=== PATIENT | female | born 1985 | race African-American/Black ===

== ENCOUNTER 2018-03-13 06:23 | Emergency (ER) | payer SELFPAY ==
[2018-03-13 07:01] LABS: Urine Blood NEGATIVE (NEG); Urine Glucose NEGATIVE (NEG); Urine Protein NEGATIVE (NEG); Urine Specific Gravity 1.015 (1.005-1.030)
[2018-03-13] MEDS ORDERED: KETOROLAC 30 MG/ML INJ ONE (08:51)
--- NOTE | 2018-03-13 08:53 | ER ---
Nurse's Notes [facility] Name: Miley Larson Age: 32 yrs Sex: Female : 1985 Arrival Date: 03/13/2018 Time: 06:26 Bed 16 Private MD: None, None Diagnosis: Lower abdominal pain, unspecified Presentation: 03/13 06:42 Presenting complaint: Patient states: L lower pelvic pain since last night. Reports hx aa1 of ovarian cyst and is concerned it may be another. Also reports she could possibly be . Transition of care: patient was not received from another setting of care. Onset of symptoms was March 12, 2018. Risk Assessment: Do you want to hurt yourself or someone else? Patient reports no desire to harm self or others. Initial Sepsis Screen: Does the patient meet any 2 criteria? No. Patient's initial sepsis screen is negative. Does the patient have a suspected source of infection? No. Patient's initial sepsis screen is negative. Care prior to arrival: None. 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 - Social history:: Smoking status: Patient uses tobacco products, smokes one-half pack cigarettes per day. - Ebola Screening: : No symptoms or risks identified at this time. Screenin:45 Abuse screen: Denies threats or abuse. Denies injuries from another. Nutritional aa1 screening: No deficits noted. Tuberculosis screening: No symptoms or risk factors identified. Fall Risk None identified. Assessment: 06:45 General: Appears in no apparent distress. comfortable, Behavior is calm, cooperative, aa1 appropriate for age. Pain: Complains of pain in left lower quadrant Pain began suddenly, Is continuous. Neuro: Level of Consciousness is awake, alert, obeys commands, Oriented to person, place, time, situation, Moves all extremities. Full function Gait is steady. Respiratory: Airway is patent Respiratory effort is even, unlabored, Respiratory pattern is regular, symmetrical. GI: Reports lower abdominal pain. GI: Abd is soft X 4 quads. : Denies discharge, vaginal bleeding. EENT: No signs and/or symptoms were reported regarding the EENT system. Derm: Skin is intact, is healthy with good turgor, Skin is pink, warm \T\ dry. Musculoskeletal: Circulation, motion, and sensation intact. Capillary refill < 3 seconds. 07:00 General: Appears in no apparent distress. comfortable, Behavior is calm, cooperative. rb1 Pain: Complains of pain in left lower quadrant Pain currently is 7 out of 10 on a pain scale. Neuro: Level of Consciousness is awake, alert, obeys commands, Oriented to person, place, time, situation. Cardiovascular: Capillary refill < 3 seconds is brisk in bilateral fingers. Respiratory: Airway is patent Respiratory effort is even, unlabored, Respiratory pattern is regular, symmetrical. Derm: Skin is dry, Skin is normal, Skin temperature is warm. 08:00 Reassessment: Patient appears in no apparent distress at this time. No changes from rb1 previously documented assessment. 08:45 Reassessment: Patient appears in no apparent distress at this time. Patient and/or rb1 family updated on plan of care and expected duration. Pain level reassessed. Patient is alert, oriented x 3, equal unlabored respirations, skin warm/dry/pink. Vital Signs: 06:44 BP 133 / 87; Pulse 90; Resp 16; Temp 98.4; Pulse Ox 97% on R/A; Weight 98.88 kg; Height aa1 5 ft. 2 in. (157.48 cm); Pain 7/10; 07:30 BP 118 / 71; Pulse 72; Resp 17; Pulse Ox 99% on R/A; Pain 7/10; rb1 08:30 BP 110 / 77; Pulse 74; Resp 17; Pulse Ox 98% on R/A; rb1 06:44 Body Mass Index 39.87 (98.88 kg, 157.48 cm) aa1 ED Course: 06:26 Patient arrived in ED. al2 06:27 None, None is Private Physician. al2 06:31 Vibha Grande [facility]C [facility]. snw 06:31 Henrique Hassan MD is Attending Physician. snw 06:43 Triage completed. aa1 06:44 Arm band placed on left wrist. Patient placed in an exam room, on a stretcher. aa1 06:45 Patient has correct armband on for positive identification. Bed in low position. Call aa1 light in reach. Pulse ox on. NIBP on. 07:01 Sherry Arndt, RN is Primary Nurse. rb1 07:49 Ultrasound completed. Patient tolerated well. sg3 08:13 US Transvaginal Study (Probe) In Process Unspecified. EDMS 09:11 No provider procedures requiring assistance completed. Patient did not have IV access sv during this emergency room visit. Administered Medications: 08:54 Drug: TORadol 60 mg Route: IM; Site: left gluteus; rb1 09:11 Follow up: Response: No adverse reaction sv Outcome: 08:53 Discharge ordered by MD. snw 09:11 Discharged to home ambulatory. sv 09:11 Condition: stable 09:11 Discharge instructions given to patient, Instructed on discharge instructions, follow up and referral plans. medication usage, Demonstrated understanding of instructions, follow-up care, medications, Prescriptions given X 2. 09:11 Patient left the ED. sv Signatures: Dispatcher [employer] EDOH Blanka Bolaños, RN WILNER sv Marina Whittintgon RN RN aa1 Vibha Grande FNP-C DYNAMICS AX TECHNICAL ARCHITECT-Csnw Sherry Arndt, RN RN rb1 Livier Figueroa 3 Viviana Eldridge
--- NOTE | 2018-03-13 08:53 | EDPHYS ---
Physician Documentation [facility] Name: Miley Larson Age: 32 yrs Sex: Female : 1985 Arrival Date: 03/13/2018 Time: 06:26 Bed 16 Private MD: None, None ED Physician Henrique Hassan HPI: 03/13 06:45 This 32 yrs old Black Female presents to ER via Ambulatory with complaints of OVARIAN snw PAIN. 06:45 The patient presents with left lower quad pain similar to previous ovarian cyst pain. snw Onset: The symptoms/episode began/occurred suddenly, last night. Associated signs and symptoms: The patient has no apparent associated signs or symptoms. Severity of symptoms: At their worst the symptoms were moderate, severe. The patient is sexually active. The patient has experienced a previous episode. The patient has not recently seen a physician. 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 - Social history:: Smoking status: Patient uses tobacco products, smokes one-half pack cigarettes per day. - Ebola Screening: : No symptoms or risks identified at this time. ROS: 06:43 Constitutional: Negative for fever, chills, and weight loss, Eyes: Negative for injury, snw pain, redness, and discharge, ENT: Negative for injury, pain, and discharge, Neck: Negative for injury, pain, and swelling, Cardiovascular: Negative for chest pain, palpitations, and edema, Respiratory: Negative for shortness of breath, cough, wheezing, and pleuritic chest pain, Back: Negative for injury and pain, : Negative for injury, bleeding, discharge, and swelling, MS/Extremity: Negative for injury and deformity, Skin: Negative for injury, rash, and discoloration, Neuro: Negative for headache, weakness, numbness, tingling, and seizure, Psych: Negative for depression, anxiety, suicide ideation, homicidal ideation, and hallucinations. 06:43 Abdomen/GI: Positive for abdominal pain. Exam: 06:43 Constitutional: This is a well developed, well nourished patient who is awake, alert, snw and in no acute distress. Head/Face: Normocephalic, atraumatic. Eyes: Pupils equal round and reactive to light, extra-ocular motions intact. Lids and lashes normal. Conjunctiva and sclera are non-icteric and not injected. Cornea within normal limits. Periorbital areas with no swelling, redness, or edema. ENT: Nares patent. No nasal discharge, no septal abnormalities noted. Tympanic membranes are normal and external auditory canals are clear. Oropharynx with no redness, swelling, or masses, exudates, or evidence of obstruction, uvula midline. Mucous membranes moist. Neck: Trachea midline, no thyromegaly or masses palpated, and no cervical lymphadenopathy. Supple, full range of motion without nuchal rigidity, or vertebral point tenderness. No Meningismus. Chest/axilla: Normal chest wall appearance and motion. Nontender with no deformity. No lesions are appreciated. Cardiovascular: Regular rate and rhythm with a normal S1 and S2. No gallops, murmurs, or rubs. Normal PMI, no JVD. No pulse deficits. Respiratory: Lungs have equal breath sounds bilaterally, clear to auscultation and percussion. No rales, rhonchi or wheezes noted. No increased work of breathing, no retractions or nasal flaring. Back: No spinal tenderness. No costovertebral tenderness. Full range of motion. Skin: Warm, dry with normal turgor. Normal color with no rashes, no lesions, and no evidence of cellulitis. MS/ Extremity: Pulses equal, no cyanosis. Neurovascular intact. Full, normal range of motion. Neuro: Awake and alert, GCS 15, oriented to person, place, time, and situation. Cranial nerves II-XII grossly intact. Motor strength 5/5 in all extremities. Sensory grossly intact. Cerebellar exam normal. Normal gait. Psych: Awake, alert, with orientation to person, place and time. Behavior, mood, and affect are within normal limits. 06:43 Abdomen/GI: Inspection: abdomen appears normal, Bowel sounds: normal, Palpation: moderate abdominal tenderness, severe abdominal tenderness, in the left lower quadrant. Vital Signs: 06:44 BP 133 / 87; Pulse 90; Resp 16; Temp 98.4; Pulse Ox 97% on R/A; Weight 98.88 kg; Height aa1 5 ft. 2 in. (157.48 cm); Pain 7/10; 07:30 BP 118 / 71; Pulse 72; Resp 17; Pulse Ox 99% on R/A; Pain 7/10; rb1 08:30 BP 110 / 77; Pulse 74; Resp 17; Pulse Ox 98% on R/A; rb1 06:44 Body Mass Index 39.87 (98.88 kg, 157.48 cm) aa1 MDM: 06:31 Patient medically screened. snw 08:54 Data reviewed: vital signs, nurses notes. Data interpreted: Pulse oximetry: on room air snw is 99 %. Interpretation: normal. Counseling: I had a detailed discussion with the patient and/or guardian regarding: the historical points, exam findings, and any diagnostic results supporting the discharge/admit diagnosis, lab results, the need for outpatient follow up, to return to the emergency department if symptoms worsen or persist or if there are any questions or concerns that arise at home. Special discussion: I have referred the patient to see his PCP for further evaluation of high blood pressure. Based on the history and exam findings, there is no indication for further emergent testing or inpatient evaluation. I discussed with the patient/guardian the need to see the OB Gyne specialist for further evaluation of the symptoms. I discussed with the patient/guardian the need to see the primary care provider for further evaluation of the symptoms. 03/13 06:49 Order name: Urine Dipstick--Ancillary (enter results); Complete Time: 07:06 oe 03/13 06:49 Order name: Urine --Ancillary (enter results); Complete Time: 07:06 oe 03/13 07:07 Order name: Transvaginal Study (Probe) snw Administered Medications: 08:54 Drug: TORadol 60 mg Route: IM; Site: left gluteus; rb1 09:11 Follow up: Response: No adverse reaction sv Disposition: 03/14 07:17 Co-signature as Attending Physician, Henrique Hassan MD. gs Disposition: 03/13/18 08:53 Discharged to Home. Impression: Lower abdominal pain, unspecified. - Condition is Stable. - Discharge Instructions: Hypertension, Abdominal Pain, Women. - Prescriptions for Bentyl 20 mg Oral Tablet - take 1 tablet by ORAL route every 6 hours As needed; 20 tablet. Diclofenac Sodium 75 mg Oral Tablet Sustained Release - take 1 tablet by ORAL route 2 times per day; 30 tablet. - Medication Reconciliation Form, Thank You Letter, Antibiotic Education, Prescription Opioid Use form. - Follow up: Private Physician; When: 2 - 3 days; Reason: Recheck today's complaints, Continuance of care, Re-evaluation by your physician. Follow up: Emergency Department; When: As needed; Reason: Worsening of condition. Signatures: Dispatcher [employer] EDMS Blanka Bolaños RN RN sv Marina Whittington RN RN aa1 Vibha Grande, CREATIVE SPECIALIST-C CREATIVE SPECIALIST-Csnw Sherry Arndt RN RN rb1 Henrique Hassan MD MD gs Corrections: (The following items were deleted from the chart) 03/13 09:11 08:53 03/13/2018 08:53 Discharged to Home. Impression: Lower abdominal pain, sv unspecified. Condition is Stable. Forms are Medication Reconciliation Form, Thank You Letter, Antibiotic Education, Prescription Opioid Use. Follow up: Private Physician; When: 2 - 3 days; Reason: Recheck today's complaints, Continuance of care, Re-evaluation by your physician. Follow up: Emergency Department; When: As needed; Reason: Worsening of condition. snw
--- NOTE | 2018-03-13 10:22 | RAD REPORT ---
EXAM DESCRIPTION: US - Transvaginal Study Probe - 03/13/2018 8:13 am CLINICAL HISTORY: Abdominal pain, pelvic pain. Preliminary findings provided at the time of the study. COMPARISON: Pelvic ultrasound September 2016 TECHNIQUE: Endovaginal sonography was performed. FINDINGS: Endometrial stripe is 6 mm with no focal endometrial abnormality seen. No myometrial mass. Uterus is 7.5 x 3.6 x 4.2 cm. Both ovaries are identified and show normal Doppler blood flow pattern . A 17 millimeter anechoic benign right ovarian cyst is present. No fluid or blood in the cul-de-sac. No suspicious ovarian or adnexal finding. IMPRESSION: Negative pelvic ultrasound except for an incidental 17 millimeter benign right ovarian c yst.
== END 2018-03-13 09:11 | disposition home or self-care (01) ==
LOC: ER 06:23
DX: R10.30 Lower abdominal pain, unspecified (principal); E11.9 Type 2 diabetes mellitus without complications; I10 Essential (primary) hypertension; F17.210 Nicotine dependence, cigarettes, uncomplicated
CPT/HCPCS: 76830; 81003; 81025; 96372; 99284

== ENCOUNTER 2019-03-08 22:52 | Emergency (ER) | payer SELFPAY ==
[2019-03-09 00:01] LABS: Absolute Monocytes 0.4 K/uL (0.1-1.3); Absolute Neutrophil 4.9 K/uL (1.8-8.0); Basophils % 0.4 % (0-1.3); Eosinophils % 0.9 % (0-4.4); Hematocrit 36.9 % (36.0-45.0); Lymphocytes % 16.4 % (15.3-44.8); MPV 8.2 fL (7.6-11.3); Monocytes % 5.9 % (3.3-12.3); RBC Red Blood Cell Count 4.67 M/uL (3.86-4.86)
[2019-03-09 00:11] LABS: BUN Blood Urea Nitrogen 8 mg/dL (7-18); Bicarbonate 27 mmol/L (21-32); Glucose Level 127 mg/dL (74-106); NT PRO-BNP 30 pg/mL (<125); Potassium 3.6 mmol/L (3.5-5.1); Sodium Level 140 mmol/L (136-145); Troponin (Emerg Dept Use Only) < 0.02 ng/mL (0.0-0.045)
--- NOTE | 2019-03-09 00:36 | EDPHYS ---
Physician Documentation [facility] Name: Miley Larson Age: 33 yrs Sex: Female : 1985 Arrival Date: 03/08/2019 Time: 22:57 Bed 19 Private MD: ED Physician Henrique Hassan HPI: 03/09 00:31 This 33 yrs old Black Female presents to ER via Ambulatory with complaints of Chest kb Pain. 00:31 The patient or guardian reports chest pain that is located primarily in the substernal kb area. The pain does not radiate. Associated signs and symptoms: The patient has no apparent associated signs or symptoms. The chest pain is described as aching. Duration: The patient or guardian reports a single episode. Modifying factors: The symptoms are alleviated by nothing. the symptoms are aggravated by nothing. Severity of pain: At its worst the pain was mild moderate in the emergency department the pain is unchanged. The patient has experienced similar episodes in the past, several times. The patient has not recently seen a physician. Pt reports she started having right arm pain at noon, then started having substernal chest pain at 2145. States she has had this a few times before due to stress. Historical: - Allergies: 03/08 23:04 No Known Allergies; bb - Home Meds: 23:04 amlodipine 5 mg tab 1 tab once daily [Active]; aspirin 81 mg Oral TbEC 1 tab once daily bb [Active]; hydrochlorothiazide 25 mg Oral tab 1 tab once daily [Active]; paroxetine oral oral [Active]; - PMHx: 23:04 Hypertension; Anxiety; bb - Immunization history:: Adult Immunizations up to date. - Social history:: Smoking status: unknown. - Ebola Screening: : No symptoms or risks identified at this time. ROS: 03/09 00:31 Constitutional: Negative for fever, chills, and weight loss, Neck: Negative for injury, kb pain, and swelling, Respiratory: Negative for shortness of breath, cough, wheezing, and pleuritic chest pain, Abdomen/GI: Negative for abdominal pain, nausea, vomiting, diarrhea, and constipation, Back: Negative for injury and pain, MS/Extremity: Negative for injury and deformity, Skin: Negative for injury, rash, and discoloration, Neuro: Negative for headache, weakness, numbness, tingling, and seizure. Cardiovascular: Positive for chest pain, Negative for edema, orthopnea, palpitations, paroxysmal nocturnal dyspnea. Exam: 00:31 Constitutional: This is a well developed, well nourished patient who is awake, alert, kb and in no acute distress. Head/Face: Normocephalic, atraumatic. ENT: Nares patent. No nasal discharge, no septal abnormalities noted. Tympanic membranes are normal and external auditory canals are clear. Oropharynx with no redness, swelling, or masses, exudates, or evidence of obstruction, uvula midline. Mucous membranes moist. Neck: Trachea midline, no thyromegaly or masses palpated, and no cervical lymphadenopathy. Supple, full range of motion without nuchal rigidity, or vertebral point tenderness. No Meningismus. Chest/axilla: Normal chest wall appearance and motion. Nontender with no deformity. No lesions are appreciated. Cardiovascular: Regular rate and rhythm with a normal S1 and S2. No gallops, murmurs, or rubs. Normal PMI, no JVD. No pulse deficits. Respiratory: Lungs have equal breath sounds bilaterally, clear to auscultation and percussion. No rales, rhonchi or wheezes noted. No increased work of breathing, no retractions or nasal flaring. Abdomen/GI: Soft, non-tender, with normal bowel sounds. No distension or tympany. No guarding or rebound. No evidence of tenderness throughout. Back: No spinal tenderness. No costovertebral tenderness. Full range of motion. Skin: Warm, dry with normal turgor. Normal color with no rashes, no lesions, and no evidence of cellulitis. MS/ Extremity: Pulses equal, no cyanosis. Neurovascular intact. Full, normal range of motion. Neuro: Awake and alert, GCS 15, oriented to person, place, time, and situation. Cranial nerves II-XII grossly intact. Motor strength 5/5 in all extremities. Sensory grossly intact. Cerebellar exam normal. Normal gait. 00:35 ECG was reviewed by the Attending Physician. skye Vital Signs: 03/08 23:04 BP 140 / 87; Pulse 85; Resp 16 S; Temp 98.9(O); Pulse Ox 99% on R/A; Weight 93.44 kg bb (R); Height 5 ft. 3 in. (160.02 cm) (R); Pain 7/10; 03/09 00:23 BP 114 / 66; Pulse 82; Resp 18; Pulse Ox 100% on R/A; ea 03/08 23:04 Body Mass Index 36.49 (93.44 kg, 160.02 cm) bb MDM: 03/08 23:03 Patient medically screened. kb 03/09 00:32 ZAMZAM Risk Score: TOTAL SCORE = 0. Data reviewed: vital signs, nurses notes. Data kb interpreted: Pulse oximetry: on room air is 100 %. Interpretation: normal. Counseling: I had a detailed discussion with the patient and/or guardian regarding: the historical points, exam findings, and any diagnostic results supporting the discharge/admit diagnosis, lab results, radiology results, the need for outpatient follow up, a family practitioner, to return to the emergency department if symptoms worsen or persist or if there are any questions or concerns that arise at home. ED course: HEART score: 2 (obesity, HTN, and smoker). 00:36 The patient's pulmonary embolism risk score was calculated as follows: No Risks (0 Pts).kb 03/08 23:08 Order name: Basic Metabolic Panel; Complete Time: 00:11 kb 03/08 23:08 Order name: CBC with Diff; Complete Time: 00:30 kb 03/08 23:08 Order name: NT PRO-BNP; Complete Time: 00:11 kb 03/08 23:08 Order name: Troponin (emerg Dept Use Only); Complete Time: 00:11 kb 03/08 23:08 Order name: XRAY Chest (1 view) kb 03/08 23:08 Order name: EKG; Complete Time: 23:09 kb 03/08 23:08 Order name: Cardiac monitoring; Complete Time: 00:20 kb 03/08 23:08 Order name: EKG - Nurse/Tech; Complete Time: 00:20 kb 03/08 23:08 Order name: IV Saline Lock; Complete Time: 00:21 kb 03/08 23:08 Order name: Labs collected and sent; Complete Time: 00:21 kb 03/08 23:08 Order name: O2 Per Protocol; Complete Time: 00:21 kb 03/08 23:08 Order name: O2 Sat Monitoring; Complete Time: 00:21 kb EC:35 Rate is 89 beats/min. Rhythm is regular, Normal Sinus Rhythm. QRS [place] is Normal. [place] kb interval is normal at 138 msec. QRS interval is normal at 82 msec. QT interval is normal at 350 msec. Clinical impression: Normal ECG. Interpreted by me. Reviewed by me. Administered Medications: No medications were administered Disposition: 03/09/19 00:35 Discharged to Home. Impression: Chest pain, unspecified. - Condition is Stable. - Discharge Instructions: Nonspecific Chest Pain, [id number]. - Medication Reconciliation Form, Thank You Letter, Antibiotic Education, Prescription Opioid Use, Work release form form. - Follow up: Emergency Department; When: As needed; Reason: Worsening of condition. Follow up: Private Physician; When: 2 - 3 days; Reason: Recheck today's complaints, Continuance of care, Re-evaluation by your physician. Signatures: Dispatcher [employer] EDMS Skylar York, HARDWARE DESIGNER-C HARDWARE DESIGNER-Nydia Randle RN RN Jessika Narayan RN RN ea Corrections: (The following items were deleted from the chart) 00:51 00:35 03/09/2019 00:35 Discharged to Home. Impression: Chest pain, unspecified. ea Condition is Stable. Forms are Medication Reconciliation Form, Thank You Letter, Antibiotic Education, Prescription Opioid Use. Follow up: Emergency Department; When: As needed; Reason: Worsening of condition. Follow up: Private Physician; When: 2 - 3 days; Reason: Recheck today's complaints, Continuance of care, Re-evaluation by your physician. kb
--- NOTE | 2019-03-09 00:36 | ER ---
Nurse's Notes [facility] Name: Miley Larson Age: 33 yrs Sex: Female : 1985 Arrival Date: 03/08/2019 Time: 22:57 Bed 19 Private MD: Diagnosis: Chest pain, unspecified Presentation: 03/08 23:03 Presenting complaint: Patient states: she was at work tonight and started having chest bb pain with right arm pain at about 2100 pain is throbbing, constant and currently is 7/10. Transition of care: patient was not received from another setting of care. Onset of symptoms was March 08, 2019. Risk Assessment: Do you want to hurt yourself or someone else? Patient reports no desire to harm self or others. Initial Sepsis Screen: Does the patient meet any 2 criteria? No. Patient's initial sepsis screen is negative. Does the patient have a suspected source of infection? No. Patient's initial sepsis screen is negative. Care prior to arrival: None. 23:03 Method Of Arrival: Ambulatory bb 23:03 Acuity: MIGEL 3 bb Historical: - Allergies: 23:04 No Known Allergies; bb - Home Meds: 23:04 amlodipine 5 mg tab 1 tab once daily [Active]; aspirin 81 mg Oral TbEC 1 tab once daily bb [Active]; hydrochlorothiazide 25 mg Oral tab 1 tab once daily [Active]; paroxetine oral oral [Active]; - PMHx: 23:04 Hypertension; Anxiety; bb - Immunization history:: Adult Immunizations up to date. - Social history:: Smoking status: unknown. - Ebola Screening: : No symptoms or risks identified at this time. Screenin:20 Abuse screen: Denies threats or abuse. Nutritional screening: No deficits noted. ea Tuberculosis screening: No symptoms or risk factors identified. Fall Risk None identified. Assessment: 23:20 General: Appears uncomfortable, Behavior is calm, cooperative, appropriate for age. ea Pain: Complains of pain in chest Pain radiates to right arm. Neuro: Level of Consciousness is awake, alert, obeys commands, Oriented to person, place, time, situation. Cardiovascular: Patient's skin is warm and dry. Respiratory: Airway is patent Respiratory effort is even, unlabored, Respiratory pattern is regular, symmetrical. Derm: Skin is pink, warm \T\ dry. 03/09 00:25 Reassessment: Patient and/or family updated on plan of care and expected duration. Pain ea level reassessed. Patient is alert, oriented x 3, equal unlabored respirations, skin warm/dry/pink. 00:47 Reassessment: Patient and/or family updated on plan of care and expected duration. Pain ea level reassessed. Patient is alert, oriented x 3, equal unlabored respirations, skin warm/dry/pink. Discharge instruction given to patient, verbalized the understanding of instruction . Vital Signs: 03/08 23:04 BP 140 / 87; Pulse 85; Resp 16 S; Temp 98.9(O); Pulse Ox 99% on R/A; Weight 93.44 kg bb (R); Height 5 ft. 3 in. (160.02 cm) (R); Pain 7/10; 03/09 00:23 BP 114 / 66; Pulse 82; Resp 18; Pulse Ox 100% on R/A; ea 03/08 23:04 Body Mass Index 36.49 (93.44 kg, 160.02 cm) bb ED Course: 03/08 22:57 Patient arrived in ED. ds1 23:01 EKG completed in triage. Results shown to MD. bb 23:02 Skyl[facility] York [facility] kb 23:02 Henrique Hassan MD is Attending Physician. kb 23:04 Triage completed. bb 23:04 Arm band placed on Patient placed in an exam room, on a stretcher, on pulse oximetry. bb 23:20 Jessika Muller, WILNER is Primary Nurse. ea 23:20 Patient has correct armband on for positive identification. Bed in low position. Call ea light in reach. Side rails up X 1. telemetry monitor on. Pulse ox on. NIBP on. 23:20 Patient maintains SpO2 saturation greater than 95% on room air. ea 23:32 X-ray completed. Portable x-ray completed in exam room. Patient tolerated procedure kw well. 23:34 XRAY Chest (1 view) In Process Unspecified. EDMS 23:45 Inserted saline lock: 20 gauge in left antecubital area, using aseptic technique. ea 03/09 00:48 No provider procedures requiring assistance completed. IV discontinued, intact, ea bleeding controlled, No redness/swelling at site. Pressure dressing applied. Administered Medications: No medications were administered Outcome: 00:35 Discharge ordered by . skye 00:48 Condition: good ea 00:48 Discharge instructions given to patient, Instructed on discharge instructions, follow up and referral plans. Demonstrated understanding of instructions, follow-up care. 00:50 Discharged to home ambulatory, with family. ea 00:51 Patient left the ED. ea Signatures: Dispatcher [employer] EDKY Skylar York, ROSANGELA-C [employer]-Mary Grace Dixon ds1 Nydia Lainez, RN RN Aurora Barker Elena, RN RN josé
--- NOTE | 2019-03-09 07:30 | EKG ---
Test Date: 2019-03-08 Test Time: 23:01:01 [place]ullion Chief: MEASUREMENT RESULTS: Intervals: Rate: 89 OK: 138 QRSD: 82 QT: 350 QTc: 425 [place]: P: 38 OK: 138 QRS: 39 T: 53 INTERPRETIVE STATEMENTS: Normal sinus rhythm Normal ECG Compared to ECG 05/20/2017 02:05:42 No significant changes Electronically Signed On 03-09-19 07:29:59 CDT by Sukhwinder Hung
--- NOTE | 2019-03-09 08:19 | RAD REPORT ---
EXAM DESCRIPTION: RAD - Chest Single View - 03/08/2019 11:33 pm CLINICAL HISTORY: CHEST PAIN Chest pain. COMPARISON: Chest Single View dated 05/19/2017; CHEST SINGLE VIEW dated 09/17/2015; CHEST PA AND LAT 2 VIEW dated 11/05/2011; CHEST PA AND LAT 2 VIEW dated 09/09/2008 FINDINGS: Portable technique limits examination quality. The lungs are grossly clear. The heart is normal in size. No displaced fractures. IMPRESSION: No acute intrathoracic process suspected.
== END 2019-03-09 00:51 | disposition home or self-care (01) ==
LOC: ER 22:52
DX: R07.9 Chest pain, unspecified (principal); I10 Essential (primary) hypertension; F41.9 Anxiety disorder, unspecified; Z79.82 Long term (current) use of aspirin
CPT/HCPCS: 36415; 71045; 80048; 83880; 84484; 85025; 93005; 99284

== ENCOUNTER 2022-07-28 06:29 | Emergency (ER) | payer OTHER, SELFPAY ==
--- OUTSIDE RECORDS SUMMARY | 2022-07-28 07:12 | XMS REPORT | Continuity of Care Document ---
:1985 Author Organization [facility] t Address [address] [place] [address] Care Team Providers Name Role Phone MILLICENT DELA CRUZ Primary Care Physician Unavailable NUVIA MACIEL Attending Clinician Unavailable DALLAS MOODY Attending Clinician Unavailable MILLICENT DELA CRUZ Attending Clinician Unavailable Millicent Dela Cruz MD Attending Clinician Nuvia Maciel MD Attending Clinician Doctor Unassigned, [place] Attending Clinician Unavailable MARY WOLFE Attending Clinician Unavailable Ty Alvarez Attending Clinician ZOFIA JHAVERI K.H. Attending Clinician Unavailable TY SCOTT Attending Clinician Unavailable Emilio SÁNCHEZ, Sendsantiago K.H. Attending Clinician , [facility] Attending Clinician Unavailable HELADIO DURAN Attending Clinician Unavailable Heladio Duran MD Attending Clinician Alysa Lam MD Attending Clinician Jimmie GONZALEZ, SECOND HAND, R Attending Clinician Oel Watters MD Attending Clinician [facility] Nst Attending Clinician Unavailable Ultrasound, Ang-m Attending Clinician Unavailable Nathan Mack MD, Rivera Attending Clinician [phone] Winter Rboertson MD Attending Clinician SARAH BETH DALAL Attending Clinician Unavailable Naveen SÁNCHEZ, Sarah Beth Blas Attending Clinician Kenji SÁNCHEZ, Imani Gonzalez Attending Clinician Pob, Adc Lab Main Attending Clinician Unavailable Daniella Dumas MD Attending Clinician Steffanie Webb MD Attending Clinician STEFFANIE WEBB Attending Clinician Unavailable Meera Galindo RN, [place] Attending Clinician Unavailable Jacek SÁNCHEZ, Ameena Attending Clinician Faculty, [facility] Attending Clinician Unavailable 1, [facility] Room Attending Clinician Unavailable Dustin SÁNCHEZ, Grupo Hay Attending Clinician DANIELLA DUMAS Attending Clinician Unavailable WINTER ROBERTSON Attending Clinician Unavailable 2, [facility] Room Attending Clinician Unavailable Ria Dean MD Attending Clinician NUVIA MACIEL Admitting Clinician Unavailable ALYSA LAM Admitting Clinician Unavailable HELADIO DURAN Admitting Clinician Unavailable Nuvia Maciel MD Admitting Clinician Alysa Lam MD Admitting Clinician Payers Payer Name Policy Type Policy Number Effective Date Expiration Date S violet[place] [employer] [place] - [id number] 2019 OUT OF STATE 00:00:00 [facility] [id number] 2021 CHOICE MEDICAID 00:00:00 Problems Condition Condition Condition Status Onset Resolution Last Treating Co mments Source Name Details Category Date Date Treatment Clinician Date Increased Increased Disease Active Uni vers pressure pressure 4-06 ity of in the in the 00:00: [place] eye, left eye, left 00 Medi colt Branch Hordeolum Hordeolum Disease Active Uni vers externum externum 4-06 ity of of left of left 00:00: [place] upper upper 00 Medical eyelid eyelid Branch Chronic Chronic Disease Active Univers allergic allergic 4-06 ity of rhinitis rhinitis 00:00: [place] [facility] Mild Mild Disease Active Univers depression depression 4-06 it y of 00:00: [place] [facility] Anxiety, Anxiety, Disease Active Unive rs generalize generalize 4-06 it y of d d 00:00: [place] [facility] Primary Primary Disease Active Univers insomnia insomnia 4-06 ity of 00:00: [place] [facility] Chronic Chronic Disease Active Univers bilateral bilateral 1-05 ity of low back low back 00:00: [place] pain pain 00 Medical without without Branch sciatica sciatica Hyperchole Hyperchole Disease Active U nivers steremia steremia 1-05 ity of 00:00: [place] [facility] Paraspinal Paraspinal Disease Active U nivers muscle muscle 1-05 ity of spasm spasm 00:00: [place] [facility] Bilateral Bilateral Disease Active Uni vers pleural pleural 9-17 ity of effusion effusion 00:00: [place] [facility] Acute Acute Disease Active Univers pulmonary pulmonary 9-17 ity of edema edema 00:00: [place] [facility] Branch SOB SOB Disease Active Univers (shortness (shortness 9-17 it y of of breath) of breath) 00:00: [place] grimes 00 Medical Branch Diabetic Diabetic Disease Active Unive rs eye exam eye exam 9-17 ity of 00:00: [place] [facility] Pre-eclamp Pre-eclamp Disease Active U nivers [place] 8-10 ity of superimpos superimpos 00:00: [place] grimes ed on ed on 00 Medical chronic chronic Branch hypertensi hypertensi on on 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 miscarriag 00:00: [place] grimes es es 00 Medical Branch Chronic Chronic Disease Active Univers hypertensi hypertensi 3-10 it y of on on 00:00: [place] [facility] BMI BMI Disease Active Univers 38.0-38.9, 38.0-38.9, 2-24 it y of adult adult 00:00: [place] [address] Medical Branch Type 2 Type 2 Disease Active Univers diabetes diabetes ity of mellitus mellitus [place] treated treated Medical without without Branch insulin insulin Anxiety Anxiety Disease Active Univers ity of [facility] Allergies, Adverse Reactions, Alerts Allergy Allergy Status Severity Reaction(s) Onset Inactive Treating Comm ents Source Name Type Date Date Clinician NO KNOWN Drug Active [place] [facility] ALLERGIE Class ity of S [facility] Social History Social Habit Start Date Stop Date Quantity Comments Source History of tobacco Cigarette Smoker University of use [facility] Exposure to 2022-05-25 2022-06-04 Not sure University SARS-CoV-2 (event) 00:00:00 09:39:00 [facility] Alcohol intake 2022-06-04 2022-06-04 .14 /d University of 00:00:00 00:00:00 [facility] Cigarettes smoked 2022-06-03 2022-06-03 Univers ity of current (pack per 00:00:00 00:00:[address] [facility] ) - Reported Branch Tobacco use and 2022-06-03 2022-06-03 Smokeless tobacco Un iversity of exposure 00:00:00 00:00:00 non-user [facility] History SDNM 2020-12-05 2020-12-05 99 University o f Alcohol Frequency 00:00:00 00:00:[address] [facility] History SDNM 2020-12-05 2020-12-05 99 University o f Alcohol Std Drinks 00:00:00 00:00:00 [facility] History SDNM 2020-12-05 2020-12-05 99 University o f Alcohol Binge 00:00:00 00:00:00 [facility] Branch Alcohol Comment 2020-12-05 2020-12-05 occasional Universit y of 00:00:00 00:00:00 [facility] Sex [birth year] At [birth year] Universit y of 00:00:00 00:00:00 [facility] Smoking Status Start Date Stop Date Source Ex-smoker 2022-06-03 00:00:00 2022-06-03 00:00:00 [place] [facility] Medications Ordered Filled Start Stop Current Ordering Indication Dosage Frequency Signature Comments Components Source Medication Medication Date Date Medication? Clinician (SIG) Name Name Diclofenac Yes [id number] Apply to [facility] 8-23 area(s) 4 ity of (VOLTAREN) 00:00: (four) [place] 1 % gel 00 times Medical daily. Branch Apply 4 g qid Lidocaine 5 2022-0 Yes [id number] Apply to Univers % cream 8-23 area(s) 2 ity of 00:00: (two) [place] 00 times Medical daily as Branch needed for Pain (scale 4-6). Apply 5g to affected areas BID PRN naproxen 2-0 Yes [id number] 500mg Take 1 U nivers 500 mg 8-23 tablet by ity of tablet 00:00: mouth [place] 00 every 8 Medical (eight) Branch hours as needed for Pain (scale 4-6). cyclobenzap 2022-0 Yes [id number] 5mg Take 1 Univers rine 5 mg 8-23 tablet by ity o f tablet 00:00: mouth in [place] 00 the Medical morning Branch and 1 tablet at noon and 1 tablet in the evening. Diclofenac 2-0 Yes [id number] Apply to Univers Sodium 8-23 area(s) 4 ity of (VOLTAREN) 00:00: (four) [place] 1 % gel 00 times Medical daily. Branch Apply 4 g qid Lidocaine 5 2-0 Yes [id number] Apply to Univers % cream 8-23 area(s) 2 ity of 00:00: (two) [place] 00 times Medical daily as Branch needed for Pain (scale 4-6). Apply 5g to affected areas BID PRN naproxen 2-0 Yes [id number] 500mg Take 1 U nivers 500 mg 8-23 tablet by ity of tablet 00:00: mouth [place] 00 every 8 Medical (eight) Branch hours as needed for Pain (scale 4-6). cyclobenzap 2022-0 Yes [id number] 5mg Take 1 Univers rine 5 mg 8-23 tablet by ity o f tablet 00:00: mouth in [place] 00 the Medical morning Branch and 1 tablet at noon and 1 tablet in the evening. norethindro 2022-0 Yes [id number] .35mg Take 1 Univers ne 0.35 mg 8-06 tablet by ity of tablet 00:00: mouth in [place] 00 the Medical morning. Branch norethindro 2022-0 Yes [id number] .35mg Take 1 Univers ne 0.35 mg 8-06 tablet by ity of tablet 00:00: mouth in [place] 00 the Medical morning. Branch metroNIDAZO 2021-0 2021- No [id number] 500mg Take 1 Univers LE 500 mg 4-24 08-23 tablet by ity of tablet 00:00: 00:00 mouth [place] 00 :00 every 12 Medical (twelve) Branch hours. metroNIDAZO 2021-0 2021- No [id number] 500mg Take 1 Univers LE 500 mg 4-24 08-23 tablet by ity of tablet 00:00: 00:00 mouth [place] 00 :00 every 12 Medical (twelve) Branch hours. fluconazole 2021-0 Yes [id number] 150mg Take 1 Univers 150 mg 4-22 tablet by ity of tablet 00:00: mouth [place] 00 every 72 Medical (seventy-t Branch wo) hours. fluconazole 2021-0 Yes [id number] 150mg Take 1 Univers 150 mg 4-22 tablet by ity of tablet 00:00: mouth [place] 00 every 72 Medical (seventy-t Branch wo) hours. hydroCHLORO 0 Yes [id number] 25mg Take 1 Univers thiazide 25 4-06 tablet by ity of mg tablet 00:00: mouth [place] 00 every Medical morning. Branch bacitracin [id number] in [place] [facility] 500 4-06 9102 left eye 4 ity of unit/gram 00:00: (four) [place] ophthalmic 00 times Medical ointment daily. Branch fluticasone 0 Yes [id number] 1{spray Use 1 Univers propionate 4-06 } [place] in ity o f 50 00:00: each [place] mcg/actuati 00 nostril Medic al on nasal daily. Branch spray cetirizine 0 Yes [id number] 10mg Take 1 U nivers (ZYRTEC) 10 4-06 tablet by ity of mg tablet [facility] Medical needed for Branch Allergies. metFORMIN 2021-0 Yes [id number] 500mg Take 1 U nivers 500 mg 4-06 tablet by ity of tablet 00:00: mouth 2 [place] 00 (two) Medical times Branch daily with meals. metoprolol 2021-0 Yes [id number] 25mg Take 1 U nivers tartrate 25 4-06 tablet by ity of mg tablet 00:00: mouth 2 [place] 00 (two) Medical times Branch daily. hydrALAZINE 2021-0 Yes [id number] 10mg Take 1 Univers 10 mg 4-06 tablet by ity of tablet 00:00: mouth [place] 00 every 8 Medical (eight) Branch hours. Take 1 Tab if BP >150/90 traZODone 2021-0 Yes [id number] 50mg Take 1 Uni vers 50 mg 4-06 tablet by ity of tablet 00:00: mouth at [place] 00 bedtime. Medical Branch hydrOXYzine 2021-0 Yes [id number] 25mg Take 1 Univers 25 mg 4-06 tablet by ity of tablet 00:00: mouth [place] 00 every 6 Medical (six) Branch hours as needed for Anxiety. hydroCHLORO 2021-0 Yes [id number] 25mg Take 1 Univers thiazide 25 4-06 tablet by ity of mg tablet 00:00: mouth [place] 00 every Medical morning. Branch bacitracin [id number] in [place] [facility] 500 4-06 9102 left eye 4 ity of unit/gram 00:00: (four) [place] ophthalmic 00 times Medical ointment daily. Branch fluticasone 0 Yes [id number] 1{spray Use 1 Univers propionate 4-06 } [place] in ity o f 50 00:00: each [place] mcg/actuati 00 nostril Medic al on nasal daily. Branch spray cetirizine 2021-0 Yes [id number] 10mg Take 1 U nivers (ZYRTEC) 10 4-06 tablet by ity of mg tablet 00:00: mouth at [facility] 00 bedtime as Medical needed for Branch Allergies. metFORMIN 2021-0 Yes [id number] 500mg Take 1 U nivers 500 mg 4-06 tablet by ity of tablet 00:00: mouth 2 [place] 00 (two) Medical times Branch daily with meals. metoprolol 2021-0 Yes [id number] 25mg Take 1 U nivers tartrate 25 4-06 tablet by ity of mg tablet 00:00: mouth 2 [place] 00 (two) Medical times Branch daily. hydrALAZINE 2021-0 Yes [id number] 10mg Take 1 Univers 10 mg 4-06 tablet by ity of tablet 00:00: mouth [place] 00 every 8 Medical (eight) Branch hours. Take 1 Tab if BP >150/90 traZODone 2022-0 Yes [id number] 50mg Take 1 Uni vers 50 mg 4-06 tablet by ity of tablet 00:00: mouth at [place] 00 bedtime. Medical Branch hydrOXYzine Yes [id number] 25mg Take 1 Univers 25 mg 4-06 tablet by ity of tablet 00:00: mouth [place] 00 every 6 Medical (six) Branch hours as needed for Anxiety. Diclofenac 2021- No [id number] Apply 4g Univers Sodium 10-16 to ity of (VOLTAREN) 00:00: 00:00 affected [place] 1 % gel 00 :00 area [facility] Medical [place] Diclofenac 2021- No [id number] Apply 4g Univers Sodium 10-16 to ity of (VOLTAREN) 00:00: 00:00 affected [place] 1 % gel 00 :00 [facility] Medical [place] Yes [id number] 1{tbl} Take 1 Univers vitamin 8-29 tablet by ity of w/FA tablet 00:00: mouth [place] 00 daily. Medical Branch docusate Yes [id number] 240mg Take 1 U nivers calcium 240 8-29 capsule by it y of mg capsule 00:00: mouth once [place] 00 daily as Medical needed for Branch Constipati on. Yes [id number] 1{tbl} Take 1 Univers vitamin 8-29 tablet by ity of w/FA tablet 00:00: mouth [place] 00 daily. Medical Branch docusate Yes [id number] 240mg Take 1 U nivers calcium 240 8-29 capsule by it y of mg capsule 00:00: mouth once [place] 00 daily as Medical needed for Branch Constipati on. ibuprofen 2021- No [id number] 600mg Take 1 Univers 600 mg 8-29 08-23 tablet by ity of tablet 00:00: 00:00 mouth [place] 00 :00 every 6 Medical (six) Branch hours as needed (Pain). Take with food or milk. ibuprofen 2021- No [id number] 600mg Take 1 Univers 600 mg 8-29 08-23 tablet by ity of tablet 00:00: 00:00 mouth [place] 00 :00 every 6 Medical (six) Branch hours as needed (Pain). Take with food or milk. Blood-Gluco Yes Check Unive rs se Meter 3-09 blood ity of (BLOOD 00:00: glucose 4 [place] GLUCOSE 00 times Medical MONITORING) daily. Branch Kit Lancets Yes Check Univers Misc 3-09 blood ity of 00:00: sugar 4 [place] 00 times Medical daily. Branch blood sugar Yes Check Unive rs diagnostic 3-09 blood ity of strip 00:00: glucose 4 [place] 00 times Medical daily. Branch Blood-Gluco Yes Check Unive rs se Meter 3-09 blood ity of (BLOOD 00:00: glucose 4 [place] GLUCOSE 00 times Medical MONITORING) daily. Branch Kit Lancets Yes Check Univers Misc 3-09 blood ity of 00:00: sugar 4 [place] 00 times Medical daily. Branch blood sugar Yes Check Unive rs diagnostic 3-09 blood ity of strip 00:00: glucose 4 [place] 00 times Medical daily. Branch Vital Signs Vital Name Observation Time Observation Value Comments Source Systolic blood 2022-06-03 21:00:00 126 mm[Hg] Univer sity of pressure [facility] Diastolic blood 2022-06-03 21:00:00 83 mm[Hg] Unive rsity of pressure [facility] Heart rate 2022-06-03 21:00:00 71 /min [facility] Body temperature 2022-06-03 21:00:[address] [facility] Respiratory rate 2022-06-03 21:00:00 18 /min [facility] Body height 2022-06-03 21:00:00 160 cm [facility] Body weight 2022-06-03 21:00:00 97.659 kg [facility] BMI 2022-06-03 21:00:00 38.14 kg/m2 [facility] Oxygen saturation in 2022-06-03 21:00:00 99 /min [facility] blood by [facility] Pulse oximetry Branch Procedures This patient has no known procedures. Encounters Start End Encounter Admission Attending Care Care Encounter Source Date/Time Date/Time Type Type Clinicians Facility Department ID 2021-08-12 Emergency [facility] [id number] Univers 21:01:13 ity of [facility] 2021-08-12 Emergency [facility] [id number] Univers 18:28:42 ity of [facility] 2021-08-12 Outpatient P [facility] MICHELLE [id number] Univers 17:05:04 ity of [facility] 2021-08-12 Outpatient P [facility] [id number] Univers 15:29:58 ity of [facility] 2021-08-12 Outpatient P [facility] MIC[facility] [id number] Univers 14:49:43 ity of [facility] 2021-08-12 Outpatient P [facility] [id number] Univers 13:51:04 ity of [facility] 2021-08-12 Emergency [facility] [id number] Univers 13:47:51 ity [facility] 2022-07-29 2022-07-29 [facility] [id number] Univers 10:30:00 10:30:00 NUVIA [facility] 2022-06-18 2022-06-18 [facility] [id number] Univers 14:30:00 14:30:00 [place] [facility] 2022-06-17 2022-06-17 [facility] [id number] Univers 13:00:00 13:00:00 MILLICENT lisa [facility] 2022-06-06 2022-06-06 [facility] [id number] Univers 00:00:00 00:00:00 MILLICENT lisa [facility] 2022-06-03 2022-06-03 [facility] [id number] Univers 16:20:00 16:58:49 MILLICENT [facility] 2022-06-03 2022-06-03 [facility] [id number] Univers 16:20:00 16:58:49 Visit Millicent IRVIN [id number] [place] [id number] Isiah PACHECO [id number] Nd dical [address] 2022-06-03 2022-06-03 [facility] [id number] Univers 16:20:00 16:58:49 MILLICENT mota [facility] 2022-05-13 2022-05-13 [facility] [id number] Univers 00:00:00 00:00:00 Nuvia Sabino IRVIN [id number] ity of [facility] [id number] [id number] Nd dical NAL 134 [facility] 2022-04-16 2022-04-16 [facility] [id number] Univers 09:00:00 09:00:00 MILLICENT mota [facility] 2022-03-06 2022-03-06 Telephone [facility] [id number] Univers 00:00:00 00:00:00 Millicent IRVIN 350.1.13.10 i ty of [place] [id number] [place] [id number] Nd dical NAL 044 [facility] 2022-03-06 2022-03-06 Orders Doctor LAMONT [id number] Univers 00:00:00 00:00:00 Only Unassigned, CALVIN 350.1.13.10 ity of [place] [facility] [id number] Andrea as [phone] [address] 2022-02-02 2022-02-02 [facility] [id number] Univers 00:00:00 00:00:00 Management Nuvia IRVIN [id number] ity of [place] [id number] [id number] Nd dical NAL 134 [facility] 2022-01-31 2022-01-31 Office [facility] [id number] Univers 08:00:00 08:30:00 Visit Nuvia IRVIN 350.1.13.10 ity of [facility] [id number] [id number] Nd dical NAL 134 [facility] 2022-01-31 2022-01-31 Outpatient R JANELL, [facility] [id number] Univers 08:00:00 08:00:00 NUVIA mota [facility] 2022-01-31 2022-01-31 Telephone [facility] [id number] Univers 00:00:00 00:00:00 Nuvia Sabino IRVIN 350.1.13.10 ity of [facility] [id number] [place] [id number] Nd dical NAL 134 [facility] 2022-01-15 2022-01-15 Office [facility] [id number] Univers 13:20:00 14:40:06 Visit Millicent IRVIN 350.1.13.10 i ty of [place] [id number] [id number] Nd dical [facility] 044 [facility] 2022-01-15 2022-01-15 Outpatient R [facility] [id number] Univers 13:20:00 14:40:06 [facility] 2022-01-15 2022-01-15 Outpatient R [facility] [id number] Univers 13:40:00 13:40:00 MILLICENT [facility] 2022-01-15 2022-01-15 Outpatient R [facility] [id number] Univers 13:20:00 13:20:00 MILLICENT [facility] 2022-01-15 2022-01-15 Orders Doctor MIGUEL 1.2.840.114 [id number] Univers 00:00:00 00:00:00 Only Unassigned, CALV[place] 350.1.13.10 ity of [place] [facility] 4.2.7.2.686 Andrea as [id number] [address] 2021-12-29 2021-12-29 [facility] 1.2.840.114 [id number] Univers 00:00:00 00:00:00 Millicent IRVIN 350.1.13.10 i ty of [facility] [id number] [place] [id number] Nd dical NAL 044 [facility] 2021-11-25 2021-11-25 [facility] [id number] Univers 00:00:00 00:00:00 Millicent IRVIN 350.1.13.10 i ty of [place] 4.2.7.2.[place] [id number] Nd dical NAL 044 [facility] 2021-11-06 2021-11-06 Outpatient R HEIDY, [facility] [id number] Univers 10:15:00 10:15:00 [place] [facility] 2021-10-23 2021-10-23 Office [facility] [id number] Univers 09:30:00 10:31:38 Visit Nuvia IRVIN 350.1.13.10 ity of [place] 4.2.7.2.[place] [id number] Nd dical [facility] 134 [facility] 2021-10-23 2021-10-23 Outpatient R [facility] [id number] Univers 09:30:00 10:31:38 [facility] 2021-10-23 2021-10-23 Outpatient R [facility] [id number] Univers 09:30:00 09:30:00 NUVIA [facility] 2021-10-23 2021-10-23 Orders Doctor MIGUEL 1.2.840.114 [id number] Univers 00:00:00 00:00:00 Only Unassigned, [place] 350.1.13.10 ity of [place] [facility] 4.2.7.2.686 Andrea as [id number] [address] 2021-10-16 2021-10-16 [facility] 1.2.840.114 [id number] Univers 15:00:00 16:31:34 Visit Millicent IRVIN 350.1.13.10 i ty of [place] 4.2.7.2.[place] [id number] Nd dical NAL [address] [place] [address] 2021-10-16 2021-10-16 [facility] [id number] Univers 15:00:00 16:31:34 MILLICENT mota [facility] 2021-10-16 2021-10-16 Outpatient R SARA, [facility] [id number] Univers 15:00:00 15:00:00 MILLICENT mota [facility] 2021-10-16 2021-10-16 [facility] [id number] Univers 00:00:00 00:00:00 Nuvia IRVIN 350.1.13.10 ity of [facility] 4.2.7.2.[place] [id number] Nd dicpr NAL 134 Branch [facility] 2021-09-18 2021-09-18 [facility] 1..840.114 [id number] Univers 00:00:00 00:00:00 Millicent IRVIN 350.1.13.10 i ty of [facility] [id number] [id number] [facility] 044 [facility] 2021-08-15 2021-08-15 [facility] [id number] Univers 13:45:00 13:45:00 MARY lisa [facility] 2021-08-12 2021-08-12 [facility] [id number] Univers 00:00:00 00:00:00 Ty [employer] 350.1.13.10 it y of [facility] 4.2.7.2.686 Andrea as ALBERTO?BLEA [id number] Nd dic[address] MEDICAL OFFICE [facility]ILDING 2021-08-08 2021-08-08 [facility] [id number] Univers 14:30:00 14:30:00 [place] itlisa [facility] 2021-08-06 2021-08-06 [facility] 1.2.840.114 [id number] Univers 16:30:00 23:59:00 Encounter [facility] 350.1.13.10 [place] 4.2.7.2.686 Andrea as Alberto?Blea [id number] Nd dictk ross 809 [facility] Office [facility] 2021-08-06 2021-08-06 Office [facility] 1.2.840.114 [id number] Univers 16:06:30 16:27:42 Visit Ty [facility] 350.1.13.10 it y of [place] 4.2.7.2.686 Andrea as Alberto?Blea [id number] Nd dictk ross 044 [facility] Office [facility] 2021-08-06 2021-08-06 Out[facility] [id number] Univers 16:00:00 16:00:00 TY mota [facility] 2021-07-29 2021-07-29 [facility] [id number] Univers 11:30:00 11:30:00 SENDIL itlisa [facility] 2021-07-19 2021-07-19 [facility] [id number] Univers 11:11:09 12:18:20 Nuvia Irvin 350.1.13.10 ity of [place] [phone] Nd dictk nal 134 [facility] 2021-07-19 2021-07-19 [facility] [id number] Univers 11:15:00 11:15:00 NUVIA [facility] 2021-07-16 2021-07-16 [facility] [id number] Univers 14:00:00 14:00:00 [facility] 2021-07-15 [facility] 1.2.840.114 [id number] Univers 16:00:00 23:59:00 Encounter Zofia Irvin 350.1.13.10 it[place] of [place] [phone] Nd dical nal 843 [facility] 2021-07-15 2021-07-15 [facility] [id number] Univers 16:00:00 16:00:00 SENDIL ity [facility] 2021-06-28 2021-06-28 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 Estate 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 Coordinator 2, Adc Lab [facility] 1.2.840.114 [id number] Univers 15:47:29 16:02:29 Visit Millicent Dela Cruz 350.1.13.10 it[place] of [place] [phone] Nd dical nal 353 [facility] 2021-06-28 2021-06-28 Office Sara [facility] 1.2.840.114 [id number] Univers 14:11:54 15:34:09 Visit Millicent Irvin 350.1.13.10 i ty of [place] [phone] Nd dical nal 044 [facility] 2021-06-28 2021-06-28 Outpatient R SARA [facility] [id number] Univers 14:00:00 14:00:00 MILLICENT lisa [facility] 2021-06-24 2021-06-24 Office Emilio [facility] 1.2.840.114 [id number] Univers 11:01:50 11:38:28 [facility]13.10 [facility] [place] [phone] Nd dical nal 059 [facility] 2021-06-24 2021-06-24 Outpatient R EMILIO [facility] [id number] Univers 11:00:00 11:38:28 [facility] 2021-06-24 2021-06-24 Outpatient R EMILIO [facility] [id number] Univers 11:00:00 11:00:00 [facility] 2021-06-18 2021-06-19 Emergency X RENEE [facility] ERT [id number] Univers 22:27:00 04:06:00 HELADIO mota [facility] 2021-06-18 2021-06-19 [facility] 1.2.849.454 [id number] Univers 22:27:00 04:06:00 Heladio Irvin 350.1.13.10 it[place] of [place] [phone] [facility] colt 084 [place] 2021-06-18 2021-06-18 Routine Adum, [facility] 1.2.840.114 [id number] Univers 08:36:31 09:46:54 Nuvia Irvin 350.1.13.10 ity of [place] [phone] Nd dical nal 134 [facility] 2021-06-18 2021-06-18 Outpatient R ADUM, [facility] [id number] Univers 08:00:00 08:00:00 NUVIA ity [facility] 2021-06-18 2021-06-18 Nurse Emilio, [facility] 1.2.840.114 [id number] Univers 00:00:00 00:00:00 Triage Sendil Cari Irvin 350.1.13.10 it[place] of [place] [phone] Nd dical nal 059 [facility] 2021-06-12 2021-06-12 Outpatient R AD, [facility] [id number] Univers 14:15:00 14:15:00 NUVIA ity [facility] 2021-06-12 2021-06-12 1.2.840.1 1.2.840.114 87 [id number] Univers 00:00:00 00:00:00 Encounter 81303.1.1 350.1.13.10 ity of 3.104.2.7 [place]2.081071 570 [facility] [place] 2021-06-12 2021-06-12 1.2.840.1 1.2.840.114 87 [id number] Univers 00:00:00 00:00:00 Encounter 59229.1.1 350.1.13.10 ity of 3.104.2.7 [place].696 [place]2.581265 570 [facility] [place] 2021-06-11 2021-06-11 Outpatient R [facility] [id number] Univers 09:00:00 09:00:00 ity of [facility] 2021-06-11 2021-06-11 1.2.840.1 1.2.840.114 87 [id number] Univers 00:00:00 00:00:00 Encounter 46543.1.1 350.1.13.10 it[place] of 3.104.2.7 [place]2.221834 570 Medica [facility] 2021-06-11 2021-06-11 1.2.840.1 1.2.840.114 87 [id number] Univers 00:00:00 00:00:00 Encounter 97300.1.1 350.1.13.10 ity of 3.104.2.7 [place] .2.520813 570 [facility] 2021-06-10 2021-06-10 Outpatient P [facility] [id number] Univers 14:15:00 14:15:00 ity of [facility] 2021-06-10 2021-06-10 1.2.840.1 1.2.840.114 86 [id number] Univers 00:00:00 00:00:00 Encounter 24343.1.1 350.1.13.10 ity of 3.104.2.7 [place] .2.300390 570 [facility] 2021-06-10 2021-06-10 Rod Jhaveri [facility] 1.2.809.841 [id number] Univers 00:00:00 00:00:00 Zofia Irvin 350.1.13.10 ity of [place] 4.2.7.2.686 Isiah Pacheco [phone] Nd dical nal 059 [facility] 2021-06-10 2021-06-10 1.2.840.1 1.2.840.114 86 [id number] Univers 00:00:00 00:00:00 Encounter 40474.1.1 350.1.13.10 ity of 3.104.2.7 4[place].2.696 [place] .2.004274 570 Medica l [place] 2021-06-10 2021-06-10 Telephone [facility] 1.2.981.632 [id number] Univers 00:00:00 00:00:00 Sendsantiago Alcala Theo 350.1.13.10 ity of [place] 4.2.7.2.686 [facility] [phone] Nd dical nal 059 [place] [facility] 2021-06-07 2021-06-09 [facility] 1.2.840.114 [id number] Univers 03:51:00 12:30:00 Encounter Nuvia Sabino Irvin 350.1.13.10 ity of [place] 4.2.7.2.686 [facility] [phone] [facility] 083 [place] 2021-06-07 2021-06-09 Inpatient X [facility] MICHELLE [id number] Univers 03:51:00 12:30:00 NUVIA ity of [facility] 2021-06-07 2021-06-09 [facility] 1.2.840.114 [id number] Univers 03:51:00 12:30:00 Encounter Nuvia Irvin 350.1.13.10 ity of [place] 4.2.7.2.686 [facility] [phone] [facility] 083 [place] 2021-06-09 2021-06-09 Telephone Alysa Lam [facility] 1.2.840.11 4 [id number] Univers 00:00:00 00:00:00 Jaylen 350.1.13.10 it y of [place] [facility] [id number] [facility] [address] [place] 2021-06-07 2021-06-07 Anesthesia Ronald Samuel [facility] 1.2.840.1 14 [id number] Univers 12:55:00 18:22:00 Event Ole Watters 35 0.1.13.10 ity of [place] 4.2.7.2.686 [facility] [phone] [address] 2021-06-07 2021-06-07 Anesthesia [place], R [facility] 1.2.840.1 14 [id number] Univers 12:55:00 18:22:00 Event DedeyaneliOle Cerda [place] 35 0.1.13.10 ity of [place] 4.2.7.2.686 [facility] [phone] [address] 2021-06-07 2021-06-07 Surgery Ad, [facility] 1.2.840.114 [id number] Univers 16:30:00 18:18:00 Nuvia L [place] 350.1.13.10 ity of [place] 4.2.7.2.686 [facility] [phone] [address] 2021-06-07 2021-06-07 Surgery Ad, [facility] 1.2.840.114 [id number] Univers 16:30:00 18:18:00 Nuvia L [place] 350.1.13.10 ity of [place] 4.2.7.2.6 [facility] [phone] [address] 2021-06-07 2021-06-07 Outpatient R [facility] [id number] Univers 09:00:00 09:00:00 ity of [facility] 2021-06-07 2021-06-07 Anesthesia [place], [facility] 1.2.840.114 [id number] Univers 08:48:48 08:48:48 Event R [place] 350.1.13.10 i ty of [place] 4.2.7.2.686 [facility] [phone] [address] 2021-06-07 2021-06-07 Anesthesia [place], [facility] 1.2.840.114 [id number] Univers 08:48:48 08:48:48 Event R [place] 350.1.13.10 i ty of [place] 4.2.7.2.686 [facility] [phone] [address] 2021-06-04 2021-06-04 Routine Room, [facility] 1.2.840.1 14 [id number] Univers 11:00:33 12:41:23 Adum, Nuvia Irvin 350.1.13.10 ity of [place] [phone] [facility] 134 [facility] 2021-06-04 2021-06-04 Routine Room, [facility] 1.2.840.1 14 [id number] Univers 11:00:33 12:41:23 Adum, Nuvia Irvin 350.1.13.10 ity of [place] [phone] Nd dic[address] 2021-06-04 2021-06-04 Outpatient R [facility] [id number] Univers 11:00:00 11:00:00 ity of [facility] 2021-06-03 2021-06-03 Real Estate Closing Coordinator [facility]trasound, [facility] 1.2 .840.114 [id number] Univers 11:21:35 12:06:35 Visit Nicole Acevedo CONSULTANT TEACHER 350.1. 13.10 ity of REGIONAL 4.2.7.2.686 Andrea as MATERNAL [phone] Med ical & CHILD [address] [place] [address] 2021-06-03 2021-06-03 Outpatient P [facility] [id number] Univers 11:15:00 11:15:00 ity of [facility] 2021-05-31 2021-05-31 [facility] Winter Robertson [facility] 1.2.840.114 [id number] Univers 16:16:00 18:15:00 Encounter Adum, Nuvia Irvin 350.1.13.10 ity of [place].2.[place] [phone] [address] 2021-05-31 2021-05-31 Routine Room, [facility] 1.2.840.1 14 [id number] Univers 15:06:10 16:06:17 Adum, Nuvia Irvin 350.1.13.10 ity of [place] [phone] Me dical nal 134 [facility] 2021-05-31 2021-05-31 Outpatient R [facility] [id number] Univers 15:00:00 15:00:00 ity of [facility] 2021-05-28 2021-05-28 Routine Room, [facility] 1.2.840.1 14 [id number] Univers 13:57:11 15:53:30 Adum, Nuvia Sabino [place] 350.1.13.10 ity of [place] [phone] Me dical nal 134 [facility] 2021-05-28 2021-05-28 Outpatient R [facility] [id number] Univers 14:00:00 14:00:00 ity of [facility] 2021-05-28 2021-05-28 Orders Doctor MIGUEL 1.2.840.114 [id number] Univers 00:00:00 00:00:00 Only Unassigned, CALVIN 350.1.13.10 ity of [place] [facility] 4.2.7.2.686 Andrea as [phone] [address] 2021-05-27 2021-05-27 Outpatient P NAVEEN [facility] [id number] Univers 15:15:00 15:15:00 SARAH BETH ity of [facility] 2021-05-27 2021-05-27 Real Estate Closing Coordinator [facility]trasound, [facility] 1.2 .840.114 [id number] Univers 14:28:52 15:13:52 Visit Sarah Beth Dalal CONSULTANT TEACHER 350.1.13.10 ity of Nicole Acevedo 4.2.7.2 .686 [place] MATERNAL [phone] [facility] ical & CHILD [address] [place] [address] 2021-05-27 2021-05-27 Real Estate Closing Coordinator Ultrasound, [facility] 1.2 .840.114 [id number] Univers 14:28:52 15:13:52 Visit Sarah Beth Dalal CONSULTANT TEACHER 350.1.13.10 ity of Nicole Acevedo 4.2.7.2 .686 [place] MATERNAL [phone] [facility] ical & CHILD [address] [place] [address] 2021-05-24 2021-05-24 [facility] Winter Robertson [facility] 1.2.840.114 [id number] Univers 16:32:00 20:18:00 Encounter AdNuvia chavira 350.1.13.10 ity of [place] 4.2.7.2.686 [facility] [phone] [address] 2021-05-24 2021-05-24 Routine Room, [facility] 1.2.840.1 14 [id number] Univers 14:57:15 16:24:38 Adum, Nuvia Irvin 350.1.13.10 ity of [place] [phone] Nd dical nal [address] [place] [address] 2021-05-24 2021-05-24 Outpatient R [facility] [id number] Univers 15:00:00 15:00:00 ity of [facility] 2021-05-22 2021-05-22 Hospital Adum, [facility] 1.2.840.114 [id number] Univers 11:50:00 13:10:00 Encounter Nuvia Irvin 350.1.13.10 ity of [place] 4.2.7.2.686 [facility] [phone] [address] 2021-05-21 2021-05-21 Routine Room, [facility] 1.2.840.1 14 [id number] Univers 07:53:41 10:07:41 Adum, Nuvia Irvin 350.1.13.10 ity of [place] [phone] Nd dical nal [address] [place] [address] 2021-05-21 2021-05-21 Outpatient R [facility] [id number] Univers 08:00:00 08:00:00 ity of [facility] 2021-05-20 2021-05-20 Real Estate Closing Coordinator Ultrasound, Aldo [facility] 1.2 .840.114 [id number] Univers 08:06:56 08:51:56 Visit Alysa Lam CONSULTANT TEACHER 350.1.13.10 ity of Imani Phillip [facility] 4.2.7.2.686 [place] MATERNAL [phone] [facility] ical & CHILD [address] [place] [address] 2021-05-20 2021-05-20 Real Estate Closing Coordinator Sumaya, [facility] Lab Main [facility] 1.2.8 40.114 [id number] Univers 07:57:25 08:12:25 Visit Alysa Lam 350.1.13.10 it[place] of [place] [phone] Nd dical nal 353 [facility] 2021-05-20 2021-05-20 Outpatient P [facility] [id number] Univers 08:00:00 08:00:00 ity of [facility] 2021-05-17 2021-05-18 [facility] Alysa Lam [facility] 1.2.840.114 [id number] Univers 19:32:00 10:20:00 Encounter Theo 350.1.13.10 ity of [place] 4.2.7.2.686 [facility] [phone] [address] 2021-05-17 2021-05-17 Routine Room, [facility] 1.2.840.1 14 [id number] Univers 14:57:44 15:50:23 Alysa Lam 350.1.13.10 ity of [place] [phone] Nd dical nal 134 [facility] 2021-05-17 2021-05-17 Outpatient R [facility] [id number] Univers 15:00:00 15:00:00 ity of [facility] 2021-05-16 2021-05-16 [facility] [id number] Univers 14:00:00 14:00:00 SENDIL ity of [facility] 2021-05-14 2021-05-14 Routine Room, [facility] 1.2.840.1 14 [id number] Univers 10:12:42 12:15:52 AdumCarmenNuvia Sabino Irvin 350.1.13.10 ity of [place] [phone] Nd dical nal 134 [facility] 2021-05-14 2021-05-14 Outpatient R JANELL [facility] [id number] Univers 10:30:00 10:30:00 NUVIA itlisa of [facility] 2021-05-13 2021-05-13 Real Estate Closing Coordinator Ultrasound, [facility] 1.2 .840.114 [id number] Univers 14:16:21 14:46:21 Visit Sarah Beth Dalal CONSULTANT TEACHER 350.1.13.10 ity of [facility] 4.2.7.2.686 [place] MATERNAL [phone] [facility] ical & CHILD [address] [place] [address] 2021-05-13 2021-05-13 Outpatient P NAVEEN [facility] [id number] Univers 14:15:00 14:15:00 SARAH BETH mota [facility] 2021-05-08 2021-05-08 Telephone Emilio [facility] 1.2.455.947 [id number] Univers 00:00:00 00:00:[address]vin [address].13[address] [facility] 4[place]2.[place].2.[place] [phone] [place] 496389 [facility] 2021-05-02 2021-05-02 Office Emilio [facility] 1.2.840.114 [id number] Univers 14:54:38 15:23:52 Visit Zofia Irvin 350.1.13.[address] [facility] 4.2.7.2.[place] [phone] Nd dicpr nal 9 [facility] 2021-05-02 2021-05-02 Outpatient R EMILIO [facility] [id number] Univers 15:00:00 15:00:00 SENDSANTIAGO mota [facility] 2021-05-01 2021-05-01 Routine Janell [facility] 1.2.840.114 [id number] Univers 14:01:14 15:22:43 Nuvia Irvin 350.1.13.10 ity of [place] [phone] Nd dical nal 134 [facility] 2021-05-01 2021-05-01 Outpatient R ADMERRICK, [facility] [id number] Univers 14:00:00 14:00:00 NUVIANAVYA mota [facility] 2021-04-29 2021-04-29 Real Estate Closing Coordinator Ultrasound, Aldo [facility] 1.2 .840.114 [id number] Univers 15:11:36 15:41:36 Visit Naveen Sarah Beth F CONSULTANT TEACHER 350.1.13.10 ity of [facility] 4.2.7.2 .686 [place] MATERNAL [phone] Med ical & CHILD [address] [place] [address] 2021-04-29 2021-04-29 Outpatient P NAVEEN [facility] [id number] Univers 15:15:00 15:15:00 SARAH BETH mota [facility] 2021-04-26 2021-04-26 Telephone Adum, [facility] 1.2.703.092 [id number] Univers 00:00:00 00:00:00 Nuvia Irvin 350.1.13.10 ity of [place] [phone] Nd dic[address] 2021-04-23 2021-04-23 Outpatient R JANELL, [facility] [id number] Univers 08:00:00 08:00:00 NUVIA mota [facility] 2021-04-19 2021-04-19 [facility] ROSA Webb 1.2.840.114 [id number] Univers 09:42:00 23:59:00 Encounter Steffanie Goins 350.1.13.10 ity [facility] 4.2.7.2.686 Andrea as [phone] [address] 2021-04-19 2021-04-19 Outpatient R JON [facility] ACO [id number] Univers 00:00:00 00:00:00 STEFFANIE mota [facility] 2021-04-18 2021-04-18 Real Estate Closing Coordinator 2, Adc Lab [facility] 1.2.840.114 [id number] Univers 09:11:15 09:26:15 Visit Adum, Nuvia Sabino Irvin 350.1.13.[address] [facility] 4.2.7.2.[place] [phone] Me dical nal 353 [facility] 2021-04-18 2021-04-18 Outpatient R ADUM, [facility] [id number] Univers 09:15:00 09:15:00 NUVIA ity [facility] 2021-04-17 2021-04-17 Routine Adum, [facility] 1.2.840.114 [id number] Univers 15:59:43 16:38:26 Nuvia Irvin 350.1.13.10 ity of [place] 4[place].2.[place] [phone] Nd dical nal 134 [facility] 2021-04-17 2021-04-17 Outpatient R ADUM, [facility] [id number] Univers 16:15:00 16:15:00 NUVIA itlisa [facility] 2021-04-15 2021-04-15 Real Estate Closing Coordinator Ultrasound, [facility] 1.2 .840.114 [id number] Univers 13:56:21 14:26:21 Visit Sarah Beth Dalal CONSULTANT TEACHER 350.1.13.10 [facility] 4.2.7.2.686 Andrea as MATERNAL [phone] Med ical & CHILD [address] [place] [address] 2021-04-15 2021-04-15 Outpatient P NAVEEN [facility] [id number] Univers 14:15:00 14:15:00 SARAH BETH [facility] 2021-04-14 2021-04-14 Nurse Meera MIGUEL 1.2.840.114 [id number] Univers 00:00:00 00:00:00 Triage CALVIN Galindo 350.1.13.[address] [facility] 4.2.7.2.686 Andrea as [phone] [address] 2021-04-02 2021-04-02 Routine Adum, [facility] 1.2.840.114 [id number] Univers 13:48:02 14:57:10 Nuvia Irvin 350.1.13.10 ity of [place] 4[place].2.[place] [phone] Nd dical [address] 2021-04-02 2021-04-02 Outpatient R ADUM, [facility] [id number] Univers 14:15:00 14:15:00 NUVIA mota [facility] 2021-04-02 2021-04-02 Outpatient R ADUM, [facility] [id number] Univers 08:00:00 08:00:00 NUVIA mota [facility] 2021-04-01 2021-04-01 Real Estate Closing Coordinator Ultrasound, [facility] 1.2 .840.114 [id number] Univers 15:00:06 15:34:52 Visit Sarah Beth Dalal CONSULTANT TEACHER 350.1.13.10 ity of [facility] 4.2.7.2 .686 [place] MATERNAL [phone] Med ical & CHILD [address] [place] [address] 2021-04-01 2021-04-01 Outpatient P NAVEEN [facility] [id number] Univers 15:15:00 15:15:00 SARAH BETH [facility] 2021-03-25 2021-03-25 Orders Doctor LAMONT 1.2.840.114 [id number] Univers 00:00:00 00:00:00 Only Unassigned, CALVIN 350.1.13.10 ity of [place] [facility] 4.2.7.2.686 Andrea as [phone] [address] 2021-03-19 2021-03-19 Routine Adum, [facility] 1.2.840.114 [id number] Univers 08:55:44 09:49:33 Nuvia Irvin 350.1.13.10 ity of [place] 4[place] [phone] Nd dic[address] 2021-03-19 2021-03-19 Outpatient R ADUM, [facility] [id number] Univers 08:45:00 08:45:00 NUVIA mota [facility] 2021-03-18 2021-03-18 Real Estate Closing Coordinator Ultrasound, [facility] 1.2 .840.114 [id number] Univers 14:09:39 14:39:39 Visit Sarah Beth Dalal CONSULTANT TEACHER 350.1.13.10 ity of [facility] 4.2.7.2.686 Andrea as MATERNAL [phone] [facility] CH[facility] [address] [place] [address] 2021-03-18 2021-03-18 Outpatient P [facility] [id number] Univers 14:15:00 14:15:00 ity [facility] 2021-03-07 2021-03-07 Real Estate Closing Coordinator Ultrasound, [facility] 1.2 .840.114 [id number] Univers 14:56:28 15:26:28 Visit Ameena Read CONSULTANT TEACHER 350.1.13.10 ity of [facility] 4.2.7.2.686 Andrea as MATERNAL [phone] [facility] & [address] 2021-03-07 2021-03-07 Outpatient P [facility] [id number] Univers 15:00:00 [facility] 2021-[facility]-05 2021-03-05 [facility] 1.2.840.114 [id number] Univers 10:38:47 11:46:16 Nuvia Sabino [place] 350.1.13.10 ity of [place] 4[place].2.[place] [phone] Nd dical [address] 2021-03-05 2021-03-05 Outpatient R ADUM, [facility] [id number] Univers 10:30:00 10:30:00 NUVIA syedlisa [facility] 2021-03-04 2021-03-04 Outpatient R [facility] [id number] Univers 15:00:00 15:00:00 [facility] 2021-03-04 2021-03-04 Office Faculty, Maximino Dollpatrice [facility] 1.2 .840.114 [id number] Univers 09:57:34 10:56:08 Visit Ameena Read CONSULTANT TEACHER 350.1.13.10 ity of [facility] 4.2.7.2.686 Andrea as MATERNAL [phone] Med ical & CHILD 107 [facility] 2021-02-20 2021-02-20 Real Estate Closing Coordinator 2, [facility] 1.2.840.114 [id number] Univers 14:13:45 14:28:45 Visit Zofia Jhaveri 350.1.13. 10 [place] [phone] Nd dical nal 353 [facility] 2021-02-20 2021-02-20 [facility] 1.2.840.114 [id number] Univers 13:43:49 14:07:29 Visit Zofia Irvin 350.1.13.10 [place] [phone] Nd dicpr cesar 059 [facility] 2021-02-20 2021-02-20 Outpatient R EMILIO, [facility] [id number] Univers 13:30:00 13:30:00 [place] [facility] 2021-02-19 2021-02-19 Routine Adum, [facility] 1.2.840.114 [id number] Univers 14:02:50 15:45:34 Nuvia Irvin 350.1.13.10 ity of [place] [phone] Nd dical nal 134 [facility] 2021-02-19 2021-02-19 Outpatient R ADUM, [facility] [id number] Univers 14:00:00 14:00:00 NUVIA mota of [facility] 2021-02-19 2021-02-19 Orders Doctor MIGUEL 1.2.840.114 [id number] Univers 00:00:00 00:00:00 Only Unassigned, CALVIN 350.1.13.10 ity of [place] [facility] 4.2.7.2.686 Andrea as [phone] [address] 2021-02-18 2021-02-18 Real Estate Closing Coordinator 1, [facility] Room UNIVERSIT 1 .2.840.114 [id number] Univers 09:00:12 10:15:12 Visit [employer] [facility] 350.1.13. 10 ity of [facility] 4[place] [phone] [facility] [address] 2021-02-18 2021-02-18 Outpatient P [facility] [id number] Univers 09:00:00 09:00:00 ity of [facility] 2021-02-06 2021-02-06 Outpatient R ADUM, [facility] [id number] Univers 14:30:00 14:30:00 NUVIA ity [facility] 2021-02-05 2021-02-05 Orders Doctor LAMONT 1.2.840.114 [id number] Univers 00:00:00 00:00:00 Only Unassigned, CALVIN 350.1.13.10 ity of [facility] [id number] Andrea as [phone] [facility] [address] 2021-02-04 2021-02-04 Real Estate Closing Coordinator Ultrasound, [facility] 1.2 .840.114 [id number] Univers 15:23:50 16:26:45 Visit Imani Phillip CONSULTANT TEACHER [id number] ity of [facility] [id number] Andrea as MATERNAL [phone] Med ical & CHILD [address] [place] [address] 2021-02-04 2021-02-04 Outpatient P [facility] [id number] Univers 15:15:00 15:15:00 ity of [facility] 2021-01-29 2021-01-29 Case Adum, [facility] 1.2.840.114 [id number] Univers 00:00:00 00:00:00 Management Nuvia Irvin [id number] [facility] [id number] [phone] Nd dical [address] 2021-01-22 2021-01-22 Real Estate Closing Coordinator 2, Adc Lab [facility] 1.2.840.114 [id number] Univers 15:48:19 16:03:19 Visit Janell Nuvia Irvin 350.1.13.10 ity of [id number] [phone] Nd dical nal 353 [facility] 2021-01-22 2021-01-22 Routine Adum, [facility] 1.2.840.114 [id number] Univers 14:10:10 15:35:46 Nuvia [place] [id number] ity of [id number] [phone] Nd dical nal 134 [facility] 2021-01-22 2021-01-22 Telemedici [facility] 1.2.840.114 [id number] Univers 08:10:00 08:30:00 ne Visit Sendil Cari Irvin [id number] ity of [id number] [phone] Nd dical nal 059 [facility] 2021-01-22 2021-01-22 [facility] [id number] Univers 08:10:00 08:10:00 SENDIL ity [facility] 2021-01-16 2021-01-16 [facility] [id number] Univers 09:30:00 09:30:00 NUVIA ity of [facility] 2021-01-15 2021-01-15 Outpatient R [facility] [id number] Univers 08:00:00 08:00:00 ity of [facility] 2021-01-15 2021-01-15 [facility] [id number] Univers 08:00:00 08:00:00 SENDIL ity [facility] 2021-01-15 2021-01-15 Telephone [facility] [id number] Univers 00:00:00 00:00:00 Nuvia Irvin 350.1.13.10 ity of [place] [phone] Nd dical nal 134 [facility] 2021-01-07 2021-01-07 Telemedici Faculty, Maximino [facility] 1.2.840.114 [id number] Univers 08:07:40 08:37:40 ne Visit AlesiaDaniella Ronald CONSULTANT TEACHER 350.1.13.10 ity of [facility] [id number] Andrea as MATERNAL [phone] Med ical & CHILD [address] [place] [address] 2021-01-07 2021-01-07 Outpatient R ALESIA [facility] [id number] Univers 08:00:00 08:00:00 DANIELLA itlisa [facility] 2021-01-01 2021-01-01 Telephone [facility] [id number] Univers 00:00:00 00:00:00 Nuvia Sabino Irvin 350.1.13.10 ity of [place] [phone] Nd dical nal 134 [facility] 2020-12-28 2020-12-28 Real Estate Closing Coordinator 2, Adc Lab [facility] 1.2.840.114 [id number] Univers 08:15:33 08:30:33 Visit Nuvia Maciel Sabino Irvin 350.1.13.[address] [facility] [id number] [phone] Nd dical [facility] 353 [facility] 2020-12-28 2020-12-28 Outpatient R JANELL [facility] [id number] Univers 08:00:00 08:00:00 NUVIA mota [facility] 2020-12-28 2020-12-28 Orders Doctor MIGUEL 1.2.840.114 [id number] Univers 00:00:00 00:00:00 Only Unassigned, CALVIN 350.1.13.10 ity of [place] [facility] 4.2.7.2.686 Andrea as [phone] [address] 2020-12-24 2020-12-24 Outpatient [place] [facility] [id number] Univers 14:30:00 14:30:00 ity [facility] 2020-12-21 2020-12-21 Outpatient [place] [facility] [id number] Univers 09:30:00 09:30:00 ity of [facility] 2020-12-21 2020-12-21 Real Estate Closing Coordinator 2, Adc Lab [facility] 1.2.840.114 [id number] Univers 08:44:23 08:59:23 Visit [place] 350.1.13.10 ity of [place] [phone] [address] 2020-12-20 2020-12-20 [facility]phone [facility] [id number] Univers 00:00:00 00:00:00 Nuvia [place] 350.1.13.10 ity of [id number] [phone] [address] 2020-12-19 2020-12-19 Outpatient R [facility] [id number] Univers 16:00:00 16:00:00 NUVIA mota [facility] 2020-12-19 2020-12-19 Real Estate Closing Coordinator 2, Adc Lab [facility] 1.2.840.114 [id number] Univers 11:34:59 11:49:59 Visit Nuvia Maciel 350.1.13.10 ity of [place] [phone] [address] 2020-12-19 2020-12-19 [facility] 1.2.840.114 [id number] Univers 09:31:44 11:17:55 Nuvia Irvin 350.1.13.10 ity of [place] [phone] [address] 2020-12-19 2020-12-19 Outpatient R AD, [facility] [id number] Univers 09:30:00 09:30:00 NUVIA mota [facility] 2020-12-18 2020-12-18 Case [facility] 1.2.840.114 [id number] Univers 00:00:00 00:00:00 Management Nuvia Irvin 350.1.13.10 ity of [place] [phone] Nd dical nal 134 [facility] 2020-12-18 2020-12-18 [facility]phone [facility] [id number] Univers 00:00:00 00:00:00 Nuvia [place] 350.1.13.10 ity of [place].7.2.[place] [phone] Nd dical nal 134 [facility] 2020-12-17 2020-12-17 Real Estate Closing Coordinator 2, [facility] Us Room [facility] 1 .2.840.114 [id number] Univers 15:09:13 16:39:38 Visit Ria Dean [facility] 350.1.13.10 ity of [facility].2.[place] [phone] [facility] [address] [place] 2020-12-17 2020-12-17 Outpatient P [facility] [id number] Univers 15:00:00 15:00:00 ity of [facility] 2020-12-14 2020-12-14 [facility] 1.2.840.114 [id number] Univers 14:47:38 23:59:00 Encounter Nuvia Irvin 350.1.13.10 ity of [place] [phone] [facility] [address] [place] 2020-12-14 2020-12-14 Outpatient R [facility] [id number] Univers 00:00:00 00:00:00 NUVIA ity of [facility] 2020-12-14 2020-12-14 [facility] [id number] Univers 00:00:00 00:00:00 Nuvia Irvin 350.1.13.10 ity of [place] [phone] Nd dical nal [address] [place] [address] 2020-12-14 2020-12-14 [facility] 1.2.840.114 [id number] Univers 00:00:00 00:00:00 Management Nuvia Irvin 350.1.13.10 ity of [place].2.[place] [phone] Nd dical nal 134 [facility] 2020-12-12 2020-12-12 [facility] [id number] Univers 00:00:00 00:00:00 Nuvia Driver[place] 350.1.13.10 ity of [place].2.[place] [phone] Nd dical nal 134 [facility] 2020-12-11 2020-12-11 Office [facility] 1.2.840.114 [id number] Univers 13:21:53 14:03:15 Visit Zofia Irvin 350.1.13.10 ity of [place].7.2.[place] [phone] Nd dicpr nal 059 [facility] 2020-12-11 2020-12-11 [facility] [id number] Univers 13:30:00 13:30:00 SENDIL ity of [facility] 2020-12-11 2020-12-11 [facility] 1.2.840.114 [id number] Univers 00:00:00 00:00:00 Management Nuvia Irvin 350.1.13.10 ity of [place].2.[place] [phone] Nd dical nal [address] [place] [address] 2020-12-11 2020-12-11 [facility] 1.2.840.114 [id number] Univers 00:00:00 00:00:00 Management Nuvia Irvin 350.1.13.10 ity of [place].2.[place] [phone] Nd dical nal 134 [facility] 2020-12-11 2020-12-11 [facility] [id number] Univers 00:00:00 00:00:00 Nuvia Gallo [place] 350.1.13.10 ity of [place].2.[place] [phone] Nd dical nal 134 [facility] 2020-12-07 2020-12-07 Real Estate Closing Coordinator 2, Adc Lab [facility] 1.2.840.114 [id number] Univers 08:20:29 08:35:29 Visit Adum, Nuvia [place] 350.1.13.10 ity of [place].2.[place] [phone] Nd dical nal 353 [facility] 2020-12-07 2020-12-07 Outpatient R AD, [facility] [id number] Univers 08:15:00 08:15:00 NUVIA itlisa [facility] 2020-12-05 2020-12-05 Real Estate Closing Coordinator 2, Adc Lab [facility] 1.2.840.114 [id number] Univers 11:42:04 11:57:04 Visit Adum, Nuvia Sabino [place] 350.1.13.10 ity of [place].2.[place] [phone] Nd dical nal 353 [facility] 2020-12-05 2020-12-05 Initial Adum, [facility] 1.2.840.114 [id number] Univers 09:40:24 11:18:28 Nuvia [place] 350.1.13.10 ity of [place] [phone] Nd dical nal 134 [facility] 2020-12-05 2020-12-05 Outpatient R ADUM, [facility] [id number] Univers 09:30:00 09:30:00 NUVIA ity [facility] 2020-12-05 2020-12-05 Orders Doctor MIGUEL 1.2.840.114 [id number] Univers 00:00:00 00:00:00 Only Unassigned, CALVIN 350.1.13.10 ity of [place] [facility] 4.2.7.2.686 Andrea as [phone] [place] [address] Branch Results This patient has no known results.
[2022-07-28] MEDS ORDERED: HYDROCODONE/APAP 5/325 MG TAB ONE (07:22)
[2022-07-28 08:36] LABS: Absolute Lymphocytes (CBC) 1.1 K/uL (0.7-4.9); Hematocrit 33.5 % (36.0-45.0); Lymphocytes % 13.8 % (15.3-44.8); MCV 77.1 fL (80-100); MPV 7.4 fL (7.6-11.3); RBC Red Blood Cell Count 4.34 M/uL (3.86-4.86)
[2022-07-28 08:49] LABS: Potassium 3.5 mmol/L (3.5-5.1)
--- NOTE | 2022-07-28 09:24 | RAD REPORT ---
EXAM DESCRIPTION: CTFacial Bones W Con Mpr07/28/2022 9:09 am CLINICAL HISTORY: Right facial pain and swelling COMPARISON: None. TECHNIQUE: Computed axial tomography of the face obtained with coronal and sagittal reconstruction. 50 cc Isovue-[address] scans are performed using dose optimization technique as appropriate and may include automated exposure control or mA/KV adjustment according to patient size. FINDINGS: Lucencies consistent with caries involve several right maxillary teeth. Several air bubbles and ill-defined fluid are present within the soft tissue anterior to the right ma xilla. A discrete fluid-filled abscess is not visualized. Significant edema is present within the sub cutaneous tissues. The parotid and submandibular glands appear unremarkable. The parapharyngeal fat is clear. Fluid within the sinuses is not noted. IMPRESSION: Right maxillary dental caries Air bubbles and ill-defined fluid within the soft tissue anterior to the right maxilla consistent wit h infection. A discrete fluid-filled abscess is not visualized .
--- NOTE | 2022-07-28 10:06 | ER ---
Nurse's Notes [facility] Name: Miley Larson Age: 36 yrs Sex: Female : 1985 Arrival Date: 07/28/2022 Time: 06:31 Bed 14 Private MD: Diagnosis: Dental pain;Facial pain;Facial Swelling Presentation: 07/28 06:57 Chief complaint: Patient states: she started having a toothache right upper jaw last bb night but woke up this morning with right side of face extremely swollen. Coronavirus screen: At this time, the client does not indicate any symptoms associated with coronavirus-19. Ebola Screen: No symptoms or risks identified at this time. Initial Sepsis Screen: Does the patient meet any 2 criteria? No. Patient's initial sepsis screen is negative. Does the patient have a suspected source of infection? Yes:. Risk Assessment: Do you want to hurt yourself or someone else? Patient reports no desire to harm self or others. Onset of symptoms was July 27, 2022. 06:57 Method Of Arrival: Ambulatory bb 06:57 Acuity: MIGEL 3 bb Triage Assessment: 06:59 General: Appears uncomfortable, Behavior is cooperative, anxious. Pain: Complains of bb pain in right jaw Pain currently is 9 out of 10 on a pain scale. EENT: Reports pain in right upper jaw and face. Neuro: Level of Consciousness is awake, alert, obeys commands, Oriented to person, place, time, situation. Cardiovascular: Capillary refill < 3 seconds Patient's skin is warm and dry. Respiratory: Respiratory effort is even, unlabored, Respiratory pattern is regular. GI: No signs and/or symptoms were reported involving the gastrointestinal system. Derm: Skin is dry, Skin is normal, Skin temperature is warm. Derm: swelling to right side of face. Musculoskeletal: Circulation, motion, and sensation intact. 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 - Social history:: Smoking status: Patient denies any tobacco usage or history of. Screenin:15 Abuse screen: Denies threats or abuse. Denies injuries from another. Nutritional ko1 screening: No deficits noted. Tuberculosis screening: No symptoms or risk factors identified. Fall Risk None identified. Assessment: 07:15 General: Appears in no apparent distress. uncomfortable, Behavior is calm, cooperative, ko1 appropriate for age. Pain: Complains of pain in right zygomatic area and right cheek. Neuro: No deficits noted. Cardiovascular: No deficits noted. Respiratory: No deficits noted. GI: No deficits noted. : No deficits noted. EENT: swelling to right side of face. Reports pain Pain is 10 out of 10 on a pain scale. Derm: No deficits noted. Musculoskeletal: No deficits noted. Vital Signs: 06:57 BP 132 / 81; Pulse 83; Resp 16 S; Temp 98.6(O); Pulse Ox 99% on R/A; Weight 95.71 kg bb (R); Height 5 ft. 3 in. (160.02 cm) (R); Pain 9/10; 07:15 BP 128 / 84; Pulse 78; ko1 08:15 BP 134 / 81; ko1 09:15 BP 124 / 78; ko1 10:15 BP 138 / 77; Pulse 72; ko1 06:57 Body Mass Index 37.38 (95.71 kg, 160.02 cm) Vitals: 08:15 Cardiac Rhythm Assessment Regular. ko1 ED Course: 06:31 Patient arrived in ED. ag3 06:35 Ahsan Bowens DO is Attending Physician. ms3 06:50 Ahsan Bowens DO is Attending Physician. ms3 06:59 Triage completed. bb 06:59 Arm band placed on Pt seen by Dr Bowens in triage. bb 07:15 Patient has correct armband on for positive identification. Bed in low position. Call ko1 light in reach. Side rails up X 1. 07:20 Shahrzad Roche, RN is Primary Nurse. ko1 08:22 Inserted saline lock: 22 gauge in left wrist, using aseptic technique. Blood collected. tp1 08:23 BMP Sent. ko1 08:23 CBC with Diff Sent. ko1 08:55 Attending Physician role handed off by Ahsan Bowens DO sd2 08:55 Blanka Hoyt MD is Attending Physician. sd2 10:06 Benigno Bai DDS is Referral Physician. sd2 10:15 No provider procedures requiring assistance completed. IV discontinued, intact, ko1 bleeding controlled, No redness/swelling at site. Pressure dressing applied. 10:36 CT In Process Unspecified. EDMS Administered Medications: 07:37 Drug: Clindamycin 300 mg Route: PO; ko1 07:37 Drug: HYDROcodone-acetaminophen 5 mg-325 mg 1 tabs Route: PO; ko1 10:24 Drug: Zofran (Ondansetron) 4 mg Route: IVP; Site: left hand; ko1 10:27 Drug: morphine 4 mg Route: IVP; Infused Over: 4 mins; Site: left hand; ko1 Medication: 09:15 VIS not applicable for this client. ko1 Outcome: 10:06 Discharge ordered by . sd2 10:15 Discharged to home ambulatory, with family. ko1 10:15 Condition: stable 10:31 Discharge instructions given to patient, Instructed on discharge instructions, follow ko1 up and referral plans. medication usage, Demonstrated understanding of instructions, follow-up care, medications, Prescriptions given X 3. 10:36 Patient left the ED. ko1 Signatures: Dispatcher [employer] EDMS Nydia Lainez, RN RN Afia Moses ag3 Ahsan Bowens DO DO ms3 Mariaa Walter RN RN tp1 Blanka Hoyt MD MD sd2 Shahrzad Roche RN RN ko1
--- NOTE | 2022-07-28 10:06 | EDPHYS ---
Physician Documentation [facility] Name: Miley Larson Age: 36 yrs Sex: Female : 1985 Arrival Date: 07/28/2022 Time: 06:31 Bed 14 Private MD: ED Physician Blanka Hoyt HPI: 07/28 07:57 This 36 yrs old Black Female presents to ER via Ambulatory with complaints of ms3 Toothache, Facial Swelling. 07:57 36-year-old female with past medical history of hypertension, anxiety, diabetes ms3 presents for right upper facial pain that began last night. Patient denies fevers or chills. Patient states her pain is a 9/10 and throbbing. Patient denies alleviating or inciting factors. 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 - Social history:: Smoking status: Patient denies any tobacco usage or history of. ROS: 07:57 Constitutional: Negative for fever, and chills. Eyes: Negative for injury, pain, ms3 redness, and discharge. 07:57 Respiratory: Negative for shortness of breath, cough, wheezing, and pleuritic chest pain, Abdomen/GI: Negative for abdominal pain, nausea, vomiting, diarrhea, and constipation, MS/Extremity: Negative for injury and deformity. 07:57 ENT: Positive for dental pain. 07:57 All other systems are negative. Exam: 07:57 Constitutional: This is a well developed, well nourished patient who is awake, alert, ms3 and in no acute distress. Head/Face: Normocephalic, atraumatic. Eyes: Pupils equal round and reactive to light, extra-ocular motions intact. Lids and lashes normal. Conjunctiva and sclera are non-icteric and not injected. Periorbital areas with no swelling, redness, or edema. 07:57 Chest/axilla: Normal chest wall appearance and motion. Nontender with no deformity. Cardiovascular: Regular rate and rhythm with a normal S1 and S2. No gallops, murmurs, or rubs. Normal PMI, no JVD. No pulse deficits. Respiratory: Lungs have equal breath sounds bilaterally, clear to auscultation and percussion. No rales, rhonchi or wheezes noted. No increased work of breathing, no retractions or nasal flaring. Skin: Warm, dry with normal turgor. Normal color with no rashes, no lesions, and no evidence of cellulitis. MS/ Extremity: Pulses equal, no cyanosis. Neurovascular intact. Full, normal range of motion. 07:57 ENT: Mouth: Gums: swollen, on the upper right first molar, Dental exam: pain, that is severe, specifically in the upper right first molar (#3). Vital Signs: 06:57 BP 132 / 81; Pulse 83; Resp 16 S; Temp 98.6(O); Pulse Ox 99% on R/A; Weight 95.71 kg bb (R); Height 5 ft. 3 in. (160.02 cm) (R); Pain 9/10; 07:15 BP 128 / 84; Pulse 78; ko1 08:15 BP 134 / 81; ko1 09:15 BP 124 / 78; ko1 10:15 BP 138 / 77; Pulse 72; ko1 06:57 Body Mass Index 37.38 (95.71 kg, 160.02 cm) bb MDM: 07:11 Patient medically screened. ms3 07:57 Differential diagnosis: dental caries, gingivitis, facial abscess. Data reviewed: vital ms3 signs, nurses notes. 08:00 Transition of care: After a detail discussion of the patient's case, care is ms3 transferred to Blanka Hoyt MD. 10:05 ED course: Labs and imaging reviewed. No defined abscess at this time for drainage. Pt sd2 to be continued on clindamycin at home and follow up urgently with a dentist for tooth extraction. She was advised of discharge plan and strict return precautions and verbalizes understanding. . 07/28 07:07 Order name: CBC with Diff ms3 07/28 07:07 Order name: BMP ms3 07/28 07:07 Order name: Facial Bones W/ Con \T\ MPR CT ms3 07/28 08:37 Order name: CBC with Automated Diff EDMS 07/28 08:49 Order name: Basic Metabolic Panel EDMS 07/28 09:24 Order name: CT EDMS Administered Medications: 07:37 Drug: Clindamycin 300 mg Route: PO; ko1 07:37 Drug: HYDROcodone-acetaminophen 5 mg-325 mg 1 tabs Route: PO; ko1 10:24 Drug: Zofran (Ondansetron) 4 mg Route: IVP; Site: left hand; ko1 10:27 Drug: morphine 4 mg Route: IVP; Infused Over: 4 mins; Site: left hand; ko1 Disposition Summary: 07/28/22 10:06 Discharge Ordered Location: Home sd2 Condition: Stable sd2 Diagnosis - Dental pain sd2 - Facial pain sd2 - Facial Swelling sd2 Followup: ms3 - With: - When: 1 - 2 days - Reason: Recheck today's complaints Discharge Instructions: - Discharge Summary Sheet ms3 - Dental Pain ms3 Forms: - Medication Reconciliation Form sd2 - Thank You Letter sd2 - Antibiotic Education sd2 - Prescription Opioid Use sd2 Prescriptions: - Clindamycin HCl 300 mg Oral Capsule - take 1 capsule by ORAL route every 8 hours for 10 days; 21 capsule; Refills: 0, ms3 Product Selection Permitted - Ibuprofen 600 mg Oral Tablet - take 1 tablet by ORAL route every 6 hours As needed take with food; 30 tablet; ms3 Refills: 0, Product Selection Permitted - Tramadol 50 mg Oral Tablet - take 1 tablet by ORAL route every 6 hours as needed; 12 tablet; Refills: 0, sd2 Product Selection Permitted Signatures: Dispatcher [employer] EDNydia Loredo RN RN Ahsan Castillo DO DO ms3 Blanka Hoyt MD MD sd2 Shahrzad Roche RN RN ko1
[2022-07-28] MEDS ORDERED: MORPHINE 4 MG/ML SYR ONE (10:17)
[2022-07-28] MEDS ORDERED: ONDANSETRON 4 MG/2 ML VIAL ONE (10:17)
[2022-07-28 10:54] VITALS: TEMP 98.6; O2SAT 99
[2022-07-28 11:06] VITALS: BP 138/77
== END 2022-07-28 10:36 | disposition home or self-care (01) ==
LOC: ER 06:29
DX: K08.89 Other specified disorders of teeth and supporting structures (principal); R51.9 Headache, unspecified; R22.0 Localized swelling, mass and lump, head; I10 Essential (primary) hypertension; F41.9 Anxiety disorder, unspecified; E11.9 Type 2 diabetes mellitus without complications
CPT/HCPCS: 85025; 80048; 36415; 70487; 76377; 96375; 96374; 99284; Q9967; J2405